=== PATIENT | female | born 1980 | race Two or more races ===

== ENCOUNTER 2024-10-22 10:50 | Emergency (ER) | payer MEDICAID ==
[~2024-10-22] VITALS: Ht 154.9 cm; Wt 90.0 kg
[2024-10-22 11:18] VITALS: BP 187/93; PULSE 73; RESP 16; O2SAT 97
[2024-10-22] MEDS ORDERED: AMOX500C2 PO (12:05)
[2024-10-22] MEDS ORDERED: LOSA-415 PO (13:04)
[2024-10-22 13:16] VITALS: TEMP 97.8
== END 2024-10-22 13:18 | disposition home or self-care (01) ==
LOC: ER 10:51
DX: J06.9 Acute upper respiratory infection, unspecified (principal); H66.92 Otitis media, unspecified, left ear
CPT/HCPCS: 71045; 87502; 87503; 99284

== ENCOUNTER 2025-03-18 13:25 | Emergency (ER) | payer MEDICAID ==
[~2025-03-18] VITALS: Ht 154.9 cm; Wt 95.5 kg
[2025-03-18 13:35] VITALS: BP 157/88; PULSE 63; RESP 14; TEMP 97.6; O2SAT 98
--- NOTE | 2025-03-18 15:00 | Physician Documentation ---
History of Present Illness ~ Chief Complaint: Ear Pain Stated Complaint: PAIN IN R EAR Time Seen by MD: 14:35 HPI This is a 44-year-old female who presents with right-sided ear pain for the past approximately three days, patient reports no fever. Patient reports she did fee l some amount of drainage a day ago though described it as water. Patient reports additionally approximately two weeks of pain in her posterior left arm after opening a heavy door at work multiple times daily for the last several weeks. Patient reports no other acute symptoms or concerns. 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 Physical Exam Vital Signs: Temperature: 97.6, Source: Temporal, Heart Rate: 63, Respiratory Rate: 14, BP: 157/88, Pulse Oximetry: 98, Weight: 95.500 Oxygen Flow Rate: 0 Physical Exam VITALS: Reviewed and as above. GENERAL: Alert, nontoxic appearing, no apparent distress. HEENT: Left TM nonerythematous nonbulging normal light reflex, left auditory canal nonerythematous nontender, right auditory canal erythematous, right TM injected mildly bulging, questionable perforation with dried drainage at 5 o'clock position. No mastoid tenderness RESPIRATORY: No increased work of breathing, no respiratory distress, speaking in full clear sentences MUSCULOSKELETAL: Left arm nontender to palpation, sensation intact, strength equal as compared to right Progress Results/Orders Results/Orders Vital Signs 03/18/25 13:35 Temp 97.6 Pulse 63 Resp 14 B/P (MAP) 157/88 Pulse Ox 98 O2 Flow Rate 0 Medical Decision Making Findings This 44-year-old female presented with pain to her right ear, physical exam was significant for erythema to the right auditory canal and erythematous mildly bulging tympanic membrane, questionable for rupture as there was some debris on the 5:00 a.m. position of TM that appear to be dried purulent drainage. Patient is otherwise well-appearing with remainder of physical exam benign, patient will be treated for otitis media and otitis externa with both oral antibiotics and topical otic antibiotics. Patient is appropriate for outpatient follow up and provided home care instructions, follow up instructions, and return to care precautions. Ear Diff. Dx: Considerations: Include: Cerumen impaction, Foreign body, Referred pain-dental, Referred pain-pharyngitis, Tympanic Membrane Injury Departure Time of Disposition: 15:02 Disposition: 01 HOME / SELF CARE / HOMELESS Impression: Primary Impression: Right otitis media Qualified Codes: H66.91 - Otitis media, unspecified, right ear Additional Impressions: Right otitis externa Qualified Codes: H60.91 - Unspecified otitis externa, right ear Left upper arm pain Condition: Improved Discharge Instructions: Otitis Externa, [id number], Otitis Media, Adult, Preventing Overuse Injuries, Adult Additional Instructions: Please use the prescribed antibiotics, you may use ibuprofen and Tylenol as needed for ear pain and arm pain as directed by the [id number] packaging. Your arm pain based on your description sounds like an overuse injury and you will need to follow up with her primary care provider for further management and possible physical therapy. Please follow up with your primary care provider in the next few days. Please return to the emergency department for any new or worsening concerning symptoms. Referrals: NO PRIMARY CARE PROVIDER (PCP) Prescriptions Ciprofloxacin HCl/Dexameth (Ciproflox-Dexameth Otic Susp) 0.3 %-0.1 % Drops.susp 4 DROP RIGHT EAR BID for 7 Days, #1 BOTTLE Prov: KENNY FOX 03/18/25 Amoxicillin Trihydrate (Amoxicillin) 875 Mg Tablet 1 TAB PO Q12H for 7 Days, #14 TAB Prov: KENNY FOX 03/18/25 Education Educated: Patient Educated regarding: diagnosis, treatment, prognosis, need for follow up Signature Scribe Signature: No scribe Attestation: The note accurately reflects work and decisions made by me.NEGRITO Carrion 03/19/25 03:33 KENNY FOX Mar 18, 2025 15:00
[2025-03-18] MEDS ORDERED: AMOX875T10 PO (15:06)
[2025-03-18] MEDS ORDERED: CIPR7.5D7 RIGHT EAR (15:06)
== END 2025-03-18 15:18 | disposition home or self-care (01) ==
LOC: ER 13:26
DX: H66.91 Otitis media, unspecified, right ear (principal); H60.91 Unspecified otitis externa, right ear; M79.622 Pain in left upper arm; Z88.8 Allergy status to other drugs, medicaments and biological substances
CPT/HCPCS: 99283

== ENCOUNTER 2025-05-22 20:38 | Emergency (ER) | payer MEDICAID ==
[~2025-05-22] VITALS: Ht 157.5 cm; Wt 96.3 kg
[~2025-05-22 20:38] MED LIST: CIPR7.5D7 RIGHT EAR
--- NOTE | 2025-05-23 00:07 | Physician Documentation ---
History of Present Illness ~ Chief Complaint: Flu Symptoms Stated Complaint: POSSIBLE COVID Time Seen by MD: 23:50 Mode of Arrival: POV HPI 44-year-old female presenting with flu-like symptoms for the past three days. Patient reports that she has felt very fatigued and has had body aches. She states that she has had instances where she feels hot and cold and has been very lethargic as well. She otherwise denies any cough, chest pain, nausea, vomiting, diarrhea or any other associated symptoms. Medication Reconciliation Allergies: Coded Allergies: lisinopril (Verified Allergy, Unknown, 05/22/25) Scheduled Ciprofloxacin HCl/Dexameth (Ciproflox-Dexameth Otic Susp), 4 DROP RIGHT EAR BID Past Medical History Past Medical History: No Pertinent History Review of Systems All Other Systems at this time: Reviewed and Negative Physical Exam Vital Signs: Temperature: 98.3, Source: Oral, Heart Rate: 60, Respiratory Rate: 16, BP: 156/66, Pulse Oximetry: 99, Weight: 96.300 Oxygen Flow Rate: 0 Physical Exam I have reviewed the triage vitals. CONST: Well developed and well nourished. In no acute distress HENT: Head Atraumatic EYES: Pupils are equal, round and reactive to light. Normal conjunctiva NECK: Normal range of motion. Supple. CARDIO: Normal rate and regular rhythm. No murmurs, rubs, or gallops. S1, S2. PULM/CHEST: No respiratory distress. Lungs clear to auscultation. No wheeze ABD: Soft and nontender. Nondistended. Bowel sounds normal. No guarding. : Exam deferred MSK: No edema. No deformity. NEURO: Alert and oriented to person, place and time. Moving all extremities SKIN: Warm and dry. PSYCH: Normal mood and affect. Good eye contact. Progress Results/Orders Results/Orders Orders - VADIM WALDEN MD Urinalysis, Cult If Indicated (05/23/25 00:04) Covid19 Binax Poc Result Entry (05/23/25 00:04) Completed Orders - VADIM WALDEN MD Cbc/Diff (05/23/25 00:04) BMP (05/23/25 00:04) Normal Saline 1000ml (0.9% Sodium Chlori (05/23/25 00:05) Ketorolac Trometh 30mg/Ml Vial (Toradol (05/23/25 00:05) Medications Received in ER Medications (Trade) Dose Ordered Sig/Nathalie Route PRN Reason Start Time Stop Time Status Last Admin Dose Admin Sodium Chloride 1,000 ml @ 1,000 mls/hr ONCE ONCE IV 05/23/25 00:05 05/23/25 01:04 DC 05/23/25 00:58 1,000 MLS/HR (Toradol inj. 30mg/ml) 30 mg ONCE ONCE IV 05/23/25 00:05 05/23/25 00:06 DC 05/23/25 01:00 30 MG Vital Signs 05/22/25 05/22/25 05/22/25 05/23/25 20:49 23:49 23:49 00:00 Temp 97.7 98.3 Pulse 69 60 66 Resp 16 16 16 B/P (MAP) 143/83 156/66 (96) 156/66 (96) Pulse Ox 97 99 99 O2 Flow Rate 0 0 05/23/25 05/23/25 01:00 01:00 Pulse 56 Resp 16 16 B/P (MAP) 130/79 (96) Pulse Ox 100 Laboratory Tests Test 05/23/25 00:25 05/23/25 00:29 SARS-CoV-2 Antigen (Rapid) Positive *A White Blood Count 7.3 Red Blood Count 4.11 L Hemoglobin 12.9 Hematocrit 37.0 Mean Corpuscular Volume 89.9 Mean Corpuscular Hemoglobin 31.3 H Mean Corpuscular Hemoglobin Concent 34.8 Red Cell Distribution Width 13.5 Platelet Count 323 Mean Platelet Volume 8.0 Neutrophils (%) (Auto) 52.2 Lymphocytes (%) (Auto) 37.4 Monocytes (%) (Auto) 7.9 Eosinophils (%) (Auto) 1.8 Basophils (%) (Auto) 0.7 Neutrophils # (Auto) 3.8 Lymphocytes # (Auto) 2.7 Monocytes # (Auto) 0.6 Eosinophils # (Auto) 0.1 Basophils # (Auto) 0.0 CBC Comment Sodium Level 138 Potassium Level 4.2 Chloride Level 104 Carbon Dioxide Level 30.0 Anion Gap 4 L Blood Urea Nitrogen 18 Creatinine 0.59 Estimated GFR/1.73 m2 > 90 BUN/Creatinine Ratio 30.5 H Glucose Level 99 Calcium Level 8.3 L Albumin 3.4 Chemistry Comments Medical Decision Making Additional Comment 44-year-old female presenting with a viral syndrome secondary to COVID-19. Her COVID test is positive here. Remainder of her lab work is unremarkable. Patient was given 1 L of IV normal saline and 30 mg of IV Toradol with good improvement of symptoms. She is stable and safe for discharge home. I advised her to drink plenty of fluids and take Tylenol or ibuprofen as needed for symptom control. Follow up closely with primary care physician in the next 2-3 days. Return to the ED with any acutely worsening symptoms. Departure Disposition: HOME / SELF CARE / HOMELESS Impression: Primary Impression: COVID Additional Impression: Viral syndrome Condition: Improved Discharge Instructions: Viral Illness Additional Instructions: 1. Descanse y donaldo muchos liquidos. 2. Continue tomando Tylenol u ibuprofeno tarun sea necesario para el dolor. 3. Monitoree la resolucion de los sintomas. 4. Harsh un seguimiento con banerjee medico primario y regrese a la doug de emergencias si presenta un empeoramiento desirae de los sintomas. Referrals: NO PRIMARY CARE PROVIDER (PCP) Signature Scribe Signature: 1 Attestation: 1 VADIM WLADEN MD May 23, 2025 00:07
[2025-05-23 00:38] LABS: MEAN PLATELET VOLUME 8.0 FL (7.4-10.4); RED CELL DISTRIBUTION WIDTH 13.5 % (11.5-14.5)
[2025-05-23 00:43] LABS: CREATININE 0.59 MG/DL (0.40-0.90); TOTAL CARBON DIOXIDE 30.0 MMOL/L (24-32); eCRCL 96 ML/MIN; eGFR > 90 ML/MIN
[2025-05-23] MEDS: normal saline 1000ml 1,000 ML IV ONE (00:58)
[2025-05-23] MEDS: ketorolac trometh 30MG/ML vial 30 MG/ML VIAL IV ONE (01:00)
[2025-05-23 01:58] VITALS: BP 162/91; PULSE 60; RESP 16; TEMP 98; O2SAT 100
== END 2025-05-23 01:48 | disposition home or self-care (01) ==
LOC: ER 20:39
DX: U07.1 COVID-19 (principal); B34.9 Viral infection, unspecified; Z88.8 Allergy status to other drugs, medicaments and biological substances
CPT/HCPCS: 36415; 80048; 85025; 87811; 96361; 96374; 99285; J1885; J7030

== ENCOUNTER 2025-10-07 04:56 | Emergency (ER) | payer MEDICAID ==
[~2025-10-07] VITALS: Ht 154.9 cm; Wt 102.9 kg
[2025-10-07 05:18] VITALS: TEMP 97.9
[2025-10-07 06:51] LABS: LEUKOCYTE ESTERASE ,URINE NEGATIVE (Neg); NITRITES, URINE NEGATIVE (Neg); OCCULT BLOOD,URINE LARGE (Neg); URINE HCG NEGATIVE (NEG)
[2025-10-07 06:55] LABS: MEAN PLATELET VOLUME 8.3 FL (7.4-10.4); RED CELL DISTRIBUTION WIDTH 13.2 % (11.5-14.5)
[2025-10-07 07:08] LABS: CREATININE 0.67 MG/DL (0.40-0.90); TOTAL CARBON DIOXIDE 25.0 MMOL/L (24-32); eCRCL 80 ML/MIN; eGFR > 90 ML/MIN
[2025-10-07 07:21] LABS: UA COLLECTION TYPE CLN CATCH MIDSTREAM
[2025-10-07 07:26] LABS: MUCUS STRANDS NONE SEEN /LPF (Neg); SQUAMOUS EPITHELIAL CELL,UR FEW /LPF (FEW)
--- NOTE | 2025-10-07 08:19 | Physician Documentation ---
History of Present Illness General Chief Complaint: Abdominal Pain Stated Complaint: STOMACH PAINS Time Seen by MD: 08:19 History of Present Illness Initial Comments 45 year old female presents to the emergency department for complaints of abdominal pain that began at 0400 today. Patient states that he pain is located in her periumbilical area. She states that it began this morning when she sat down to work. She endorses nausea and states that she had vomited bile three times today. Patient states that the pain has subsided but has a lingering feeling it will return. She denies any history of gallbladder or urinary issues. She denies any current nausea or fever at this time. Of note patient speaks Croatian and history was translated at bedside by nurse. Medication Reconciliation Allergies: Coded Allergies: lisinopril (Verified Allergy, Unknown, 05/22/25) Scheduled Ciprofloxacin HCl/Dexameth (Ciproflox-Dexameth Otic Susp), 4 DROP RIGHT EAR BID Past Medical History Past Medical History: No Pertinent History Review of Systems All Other Systems at this time: Reviewed and Negative ROS Patient was asked, but denied any other symptoms. All other systems are negative other than those mentioned above. Physical Exam Physical Exam Vital Signs: Temperature: 97.9, Heart Rate: 74, Respiratory Rate: 16, BP: 110/7 0, Pulse Oximetry: 98, Weight: 102.900 Oxygen Flow Rate: 0 Pulse Oximetry Reflects: adequate oxygenation Physical Exam VITALS: Reviewed and as above. GENERAL: Alert, no apparent distress. HEENT: Normocephalic, atraumatic. PERRL, EOMI. Dry mucosa, no erythema. RESPIRATORY: Lungs clear, normal breath sounds, no respiratory distress. CHEST: No accessory muscle use, no retractions. CV: Regular rate and rhythm. No edema, no murmur, No: JVD GI: Mild, diffuse periumbilical tenderness, bowel sounds present. No rebound, guarding, or rigidity. BACK: No CVA tenderness, no swelling. MUSCULOSKELETAL: No deformities, no edema SKIN: Warm and dry, no rash. NEURO: Oriented x4. No motor or sensory deficit. PSYCH: Normal mood and affect, no agitation. Progress Results/Orders Results/Orders Vital Signs 10/07/25 10/07/25 10/07/25 10/07/25 05:18 08:27 08:30 09:48 Temp 97.9 Pulse 74 59 62 Resp 16 16 14 14 B/P (MAP) 110/70 135/91 (106) 144/79 (100) Pulse Ox 98 99 O2 Flow Rate 0 0 10/07/25 09:56 Pulse 62 Resp 14 B/P (MAP) 126/82 Laboratory Tests Test 10/07/25 05:26 10/07/25 06:26 Urine Specimen Description Cln catch midstream Urine Color Yellow Urine Clarity Slightly cloudy Urine pH 6.0 Urine Specific [place] <=1.005 Urine Protein Negative Urine Glucose (UA) Negative Urine Ketones Negative Urine Occult Blood Large H Urine Nitrite Negative Urine Bilirubin Negative Urine Urobilinogen 0.2 Urine Leukocyte Esterase Negative Urine RBC Tntc Urine WBC 0-4 Urine Squamous Epithelial Cells Few Urine Bacteria Few Urine Mucus None seen Urine Culture Indicated Not ind Volume Urine Centrifuged 10 ml Urine HCG, Qualitative Negative Urine Comment White Blood Count 8.0 Red Blood Count 4.03 L Hemoglobin 11.6 L Hematocrit 34.9 L Mean Corpuscular Volume 86.7 Mean Corpuscular Hemoglobin 28.7 Mean Corpuscular Hemoglobin Concent 33.1 Red Cell Distribution Width 13.2 Platelet Count 380 Mean Platelet Volume 8.3 Neutrophils (%) (Auto) 65.2 Lymphocytes (%) (Auto) 27.4 Monocytes (%) (Auto) 5.4 Eosinophils (%) (Auto) 1.5 Basophils (%) (Auto) 0.5 Neutrophils # (Auto) 5.2 Lymphocytes # (Auto) 2.2 Monocytes # (Auto) 0.4 Eosinophils # (Auto) 0.1 Basophils # (Auto) 0.0 CBC Comment Sodium Level 141 Potassium Level 3.9 Chloride Level 107 Carbon Dioxide Level 25.0 Anion Gap 9 Blood Urea Nitrogen 14 Creatinine 0.67 Estimated GFR/1.73 m2 > 90 BUN/Creatinine Ratio 20.9 H Glucose Level 122 H Calcium Level 8.1 L Total Bilirubin 0.3 Aspartate Amino Transf (AST/SGOT) 19 Alanine Aminotransferase (ALT/SGPT) 45 Alkaline Phosphatase 77 Total Protein 7.3 Albumin 3.2 L Globulin 4.1 Albumin/Globulin Ratio 0.8 L Lipase 28 Chemistry Comments EKG/XRAY/CT/US/VASC/MRI Ultrasound : Interpreted By: self Ultrasound of: abdomen Medical Decision Making Additional information obtaine: old records Findings The patient presented with a episodic abdominal pain which she believes is secondary to hernia, patient has family history of hernias and she states she intermittently gets abdominal pain. The patient's labs were reviewed the patient's exam was completely benign she had no masses appreciated on her exam and she was currently pain-free she has been advised that if she develops swel ling her pain she should return and we can further evaluate her abdominal pain the patient has been reassured the patient will be discharged prior hospitalizations has been reviewed the patient's pulse oximetry was interpreted as normal and adequate. Differential Diagnosis Hernia, gallbladder disease, colitis, bowel obstruction Departure Time of Disposition: 09:47 Disposition: 01 HOME / SELF CARE / HOMELESS Impression: Primary Impression: Abdominal pain Qualified Codes: R10.33 - Periumbilical pain Condition: Stable Discharge Instructions: Abdominal Pain (Nonspecific) Additional Instructions: Patient is instructed to follow up with primary care provider regarding abdomina l pain. Referrals: NO PRIMARY CARE PROVIDER (PCP) Education Educated: Patient Educated regarding: diagnosis, treatment, prognosis, need for follow up Signature Scribe Signature: Scribed by Deanne Tate Attestation: The note accurately reflects work and decisions made by me.Lianne Darby MD 10/08/25 06:21 LIANNE DARBY MD Oct 07, 2025 08:19
[2025-10-07 09:48] VITALS: O2SAT 99
[2025-10-07 09:56] VITALS: BP 126/82; PULSE 62; RESP 14
== END 2025-10-07 09:59 | disposition home or self-care (01) ==
LOC: ER 04:56
DX: R10.33 Periumbilical pain (principal); Z88.8 Allergy status to other drugs, medicaments and biological substances
CPT/HCPCS: 36415; 80053; 81001; 81025; 83690; 85025; 99284